=== PATIENT | male | born 1960 | race Caucasian/White ===

== ENCOUNTER 2020-06-05 14:45 | Emergency (ER) | payer MEDICAID, OTHER, SELFPAY ==
[~2020-06-05] VITALS: Ht 182.9 cm; Wt 100.0 kg
[2020-06-05 14:56] VITALS: BP 98/63
--- NOTE | 2020-06-05 15:00 | NUR ---
PT [facility] AFTER [facility] WAS CALLED TO SCENE FOR C/O ETOH, BELIGERENCE, AND CURRENT INABILITY TO AMBULATE DUE TO INTOXICATION. PT WAS REPORTEDLY YELLING THREATS, BUT WAS TOO INEBRIATED TO FUNCTIONALLY FOLLOW THROUGH. BG 93. HISTORY AND ALLERGIES UNABLE TO BE OBTAINED AT THIS TIME DUE TO PT INEBRIATION.
== END 2020-06-05 15:19 | disposition left against medical advice (07) ==
LOC: ED 14:50
DX: F10.129 Alcohol abuse with intoxication, unspecified (principal); Z53.21 Procedure and treatment not carried out due to patient leaving prior to being seen by health care provider; Y90.9 Presence of alcohol in blood, level not specified